=== PATIENT | male | born 2000 | race Caucasian/White ===

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

== ENCOUNTER 2022-04-28 12:31 | Emergency (ER) | payer MEDICAID ==
[~2022-04-28] VITALS: Ht 172.7 cm; Wt 83.9 kg
[~2022-04-28 12:31] MED LIST changes: +CLEOCIN300 MG PO; +TORADOL PO
[2022-04-28 14:24] VITALS: BP 126/79
== END 2022-04-28 14:50 | disposition home or self-care (01) ==
LOC: ED 12:31
DX: S93.401A Sprain of unspecified ligament of right ankle, initial encounter (principal); X50.0XXA Overexertion from strenuous movement or load, initial encounter; Y93.67 Activity, basketball; Y92.310 Basketball court as the place of occurrence of the external cause